=== PATIENT | female | born 1995 | race Two or more races ===

== ENCOUNTER 2017-12-13 11:21 | Inpatient (IN) | payer OTHER ==
[2017-12-13] MEDS ORDERED: LIDOCAINE 1% (MPF) 30 ML INJ INJ (12:00)
[2017-12-13] MEDS ORDERED: CARBOPROST 250 MCG INJ IM (12:00)
[2017-12-13] MEDS ORDERED: MISOPROSTOL 200 MCG TAB PR (12:00)
[2017-12-13] MEDS ORDERED: OXYTOCIN 30 UNITS/LR 500 ML IV (12:00)
[2017-12-13] MEDS ORDERED: METHYLERGONOVINE 0.2 MG INJ IM (12:00)
[2017-12-13] MEDS: LACTATED RINGER'S 1,000 ML IV ×2 (12:45→17:30)
[2017-12-13 12:59] LABS: ADD MAN DIFF? NO
[2017-12-13 13:05] LABS: BASOPHILS % 0.5 % (0.0-2.0); EOSINOPHILS # 0.1 10^3/ul (0.0-0.5); EOSINOPHILS % 1.4 % (0.0-7.0); HEMATOCRIT 33.6 % (37.0-47.0); LYMPHOCYTES # 1.8 10^3/ul (0.8-2.9); LYMPHOCYTES % 23.5 % (15.0-51.0); MEAN CORPUSCULAR HEMOGLOBIN 29.2 pg (29.0-33.0); MEAN CORPUSCULAR HGB CONC 35.7 g/dl (32.0-37.0); MEAN CORPUSCULAR VOLUME 81.8 fl (82.0-101.0); MEAN PLATELET VOLUME 10.8 fl (7.4-10.4); MONOCYTE # 0.5 10^3/ul (0.3-0.9); MONOCYTES % 5.9 % (0.0-11.0); NEUTROPHIL # 5.3 10^3/ul (1.6-7.5); NEUTROPHILS % 68.1 % (39.0-77.0); PLATELET COUNT 236 10^3/UL (140-415); RED BLOOD COUNT 4.11 10^6/ul (4.20-5.40); RED CELL DISTRIBUTION WIDTH 13.7 % (11.5-14.5)
[2017-12-13 13:05] LABS: WHITE BLOOD COUNT 7.8 10^3/ul (4.8-10.8)
[2017-12-13 13:19] LABS: ALANINE AMINOTRANSFERASE 19 IU/L (13-69); ALBUMIN 3.5 g/dl (3.3-4.9); ALBUMIN/GLOBULIN RATIO 0.92; ALKALINE PHOSPHATASE 154 IU/L (42-121); ANION GAP 16 (8-16); ASPARTATE AMINO TRANSFERASE 17 IU/L (15-46); BILIRUBIN,INDIRECT 0.3 mg/dl (0-1.1); BILIRUBIN,TOTAL 0.3 mg/dl (0.2-1.3); BLOOD UREA NITROGEN 11 mg/dl (7-20); CARBON DIOXIDE 18 mmol/L (21-31); CHLORIDE 113 mmol/L (97-110); CREATININE 0.65 mg/dl (0.44-1.00); GLUCOSE 83 mg/dl (70-220); POTASSIUM 3.9 mmol/L (3.5-5.1); SODIUM 143 mmol/L (135-144); TOTAL PROTEIN 7.3 g/dl (6.1-8.1)
[2017-12-13 13:25] LABS: INR 0.89; PROTIME 12.1 Sec (11.9-14.9); PT RATIO 0.9
[2017-12-13 13:28] LABS: PARTIAL THROMBOPLASTIN TIME 26.4 Sec (25.0-35.0)
[2017-12-13 13:52] LABS: ADD UMIC YES; UR ASCORBIC ACID NEGATIVE (NEGATIVE); UR BACTERIA FEW /HPF (NONE SEEN); UR BILIRUBIN (Dip) NEGATIVE (NEGATIVE); UR BLOOD (Dip) 1+ mg/dL (NEGATIVE); UR CLARITY SLIGHTLY CLOUDY (CLEAR); UR COLOR YELLOW (YELLOW); UR GLUCOSE (Dip) NEGATIVE (NEGATIVE); UR KETONES (Dip) NEGATIVE (NEGATIVE); UR LEUKOCYTE ESTERASE (Dip) 1+ Leu/ul (NEGATIVE); UR NITRITE (Dip) NEGATIVE (NEGATIVE); UR RBC 34 /HPF (0-5); UR SPECIFIC GRAVITY (Dip) 1.019 (1.003-1.030); UR SQUAMOUS EPITHELIAL CELL FEW /HPF (FEW); UR TOTAL PROTEIN (Dip) NEGATIVE (NEGATIVE); UR UROBILINOGEN (Dip) 1+ mg/dL (NEGATIVE); UR WBC 9 /HPF (0-5)
[2017-12-13] MEDS: DINOPROSTONE 10 MG VAG SUPP VAG (13:53)
[2017-12-13 14:07] LABS: AMPHETAMINE/METHAMPHETAMINE Negative (NEGATIVE); BARBITURATES Negative (NEGATIVE); BENZODIAZEPINES Negative (NEGATIVE); CANNABINOIDS Negative (NEGATIVE); COCAINE Negative (NEGATIVE); OPIATES Negative (NEGATIVE)
[2017-12-13 18:12] LABS: URIC ACID 5.9 mg/dl (3.1-7.9)
[2017-12-13 22:24] LABS: RAPID PLASMA REAGIN NONREACTIVE (NR)
[2017-12-14] MEDS: LACTATED RINGER'S 1,000 ML IV ×3 (01:36→18:36)
[2017-12-14] MEDS: DINOPROSTONE 10 MG VAG SUPP VAG ×2 (06:46→21:44)
[2017-12-14 13:49] LABS: COLLECTION PERIOD 24 hrs
[2017-12-14 14:30] LABS: COLLECTION PERIOD 24 hrs; CREATININE CLEARANCE 122.7 mls/min (84.0-162.0); CREATININE,URINE RANDOM 44.61 mg/dl (20-320); SCRET 0.65 mg/dl (0.44-1.00); VOLUME 2575 ml/24hrs; VOLUME 2575 mls
[2017-12-14 14:31] LABS: 24HR URINE TOTAL PROTEIN 334.8 mg/24hrs (42.0-225.0)
[2017-12-14] MEDS ORDERED: DINOPROSTONE 10 MG VAG SUPP VAG (19:00)
[2017-12-15] MEDS: LACTATED RINGER'S 1,000 ML IV ×3 (03:35→16:00)
[2017-12-15] MEDS ORDERED: OXYTOCIN 30 UNITS/LR 500 ML BAG IV (07:00)
[2017-12-15] MEDS: ACETAMINOPHEN 325 MG TAB PO (07:46)
[2017-12-15] MEDS: DINOPROSTONE 10 MG VAG SUPP VAG (09:53)
[2017-12-15] MEDS: ONDANSETRON 4 MG INJ IV (15:00)
[2017-12-15] MEDS: FAMOTIDINE 20 MG INJ IV (15:00)
[2017-12-15] MEDS: METOCLOPRAMIDE 10 MG INJ IV (15:00)
[2017-12-15] MEDS ORDERED: morphine SULFATE/PF (10 MG/10 ML) INJ (16:27)
[2017-12-15] MEDS ORDERED: BUPIVACAINE 0.75%/DEXT (SPINAL) 2 ML INJ (16:28)
[2017-12-15] MEDS ORDERED: LIDOCAINE 1.5%/EPI MPF (SDV) 30 ML VIAL (16:58)
[2017-12-15] MEDS ORDERED: OXYTOCIN 10 UNIT INJ (17:23)
[2017-12-15] MEDS ORDERED: HYDROmorphONE 0.5 MG/0.5 ML SYG IV ×2 (18:30)
[2017-12-15] MEDS ORDERED: ONDANSETRON 4 MG INJ IV (18:30)
[2017-12-15] MEDS ORDERED: hydrALAzine 20 MG INJ IV (18:30)
[2017-12-15] MEDS ORDERED: LABETALOL HCL 20MG INJ IV (18:30)
[2017-12-15] MEDS ORDERED: HYDROmorphONE (0.2 MG/ML) 10ML SYG IV ×3 (18:30)
[2017-12-15] MEDS ORDERED: DIPHENHYDRAMINE 50 MG INJ IV (18:30)
[2017-12-15] MEDS ORDERED: NALOXONE (0.4 MG/ML) INJ IV (18:30)
[2017-12-15] MEDS: OXYTOCIN 30 UNITS/LR 500 ML IV ×2 (19:45→23:35)
[2017-12-15] MEDS: CEFAZOLIN 2 GM/50 ML (PMX) 50 ML IV (19:50)
[2017-12-15 20:19] LABS: ADD MAN DIFF? NO
[2017-12-15 20:21] LABS: WHITE BLOOD COUNT 15.4 10^3/ul (4.8-10.8)
[2017-12-15 20:21] LABS: BASOPHILS % 0.3 % (0.0-2.0); EOSINOPHILS % 0.1 % (0.0-7.0); HEMATOCRIT 34.1 % (37.0-47.0); HEMOGLOBIN 12.2 g/dl (12.0-16.0); LYMPHOCYTES # 1.5 10^3/ul (0.8-2.9); LYMPHOCYTES % 9.6 % (15.0-51.0); MEAN CORPUSCULAR HEMOGLOBIN 29.7 pg (29.0-33.0); MEAN CORPUSCULAR HGB CONC 35.8 g/dl (32.0-37.0); MEAN PLATELET VOLUME 10.8 fl (7.4-10.4); MONOCYTE # 0.6 10^3/ul (0.3-0.9); MONOCYTES % 3.6 % (0.0-11.0); NEUTROPHIL # 13.2 10^3/ul (1.6-7.5); NEUTROPHILS % 85.6 % (39.0-77.0); PLATELET COUNT 220 10^3/UL (140-415); RED BLOOD COUNT 4.11 10^6/ul (4.20-5.40); RED CELL DISTRIBUTION WIDTH 13.5 % (11.5-14.5)
[2017-12-15] MEDS: KETOROLAC 30 MG INJ IV (20:25)
[2017-12-15 20:37] LABS: ADD UMIC NO; UR ASCORBIC ACID NEGATIVE (NEGATIVE); UR BILIRUBIN (Dip) NEGATIVE (NEGATIVE); UR BLOOD (Dip) NEGATIVE (NEGATIVE); UR CLARITY CLEAR (CLEAR); UR COLOR STRAW (YELLOW); UR GLUCOSE (Dip) NEGATIVE (NEGATIVE); UR KETONES (Dip) 1+ mg/dL (NEGATIVE); UR LEUKOCYTE ESTERASE (Dip) NEGATIVE Leu/ul (NEGATIVE); UR NITRITE (Dip) NEGATIVE (NEGATIVE); UR SPECIFIC GRAVITY (Dip) 1.004 (1.003-1.030); UR TOTAL PROTEIN (Dip) NEGATIVE (NEGATIVE); UR UROBILINOGEN (Dip) NEGATIVE (NEGATIVE)
[2017-12-15 20:40] LABS: INR 0.95; PROTIME 12.8 Sec (11.9-14.9)
[2017-12-15 20:41] LABS: PARTIAL THROMBOPLASTIN TIME 25.7 Sec (25.0-35.0)
[2017-12-15 20:48] LABS: ALANINE AMINOTRANSFERASE 14 IU/L (13-69); ALBUMIN 3.3 g/dl (3.3-4.9); ALBUMIN/GLOBULIN RATIO 0.94; ALKALINE PHOSPHATASE 142 IU/L (42-121); ANION GAP 16 (8-16); ASPARTATE AMINO TRANSFERASE 21 IU/L (15-46); BILIRUBIN,INDIRECT 0.3 mg/dl (0-1.1); BILIRUBIN,TOTAL 0.3 mg/dl (0.2-1.3); BLOOD UREA NITROGEN 5 mg/dl (7-20); CALCIUM 9.8 mg/dl (8.4-10.2); CARBON DIOXIDE 22 mmol/L (21-31); CHLORIDE 110 mmol/L (97-110); CREATININE 0.64 mg/dl (0.44-1.00); GLUCOSE 97 mg/dl (70-220); POTASSIUM 4.1 mmol/L (3.5-5.1); SODIUM 144 mmol/L (135-144); TOTAL PROTEIN 6.8 g/dl (6.1-8.1); URIC ACID 5.4 mg/dl (3.1-7.9)
[2017-12-15] MEDS ORDERED: HYDROCODONE/APAP (5/325) TAB PO (22:00)
[2017-12-15] MEDS ORDERED: OXYTOCIN 30 UNITS/LR 500 ML IV (22:00)
[2017-12-15] MEDS ORDERED: METHYLERGONOVINE 0.2 MG INJ IM (22:00)
[2017-12-15] MEDS ORDERED: CARBOPROST 250 MCG INJ IM (22:00)
[2017-12-15] MEDS ORDERED: MISOPROSTOL 200 MCG TAB PR (22:00)
[2017-12-15] MEDS ORDERED: LANOLIN 7 GM TUBE TOP (22:00)
[2017-12-15] MEDS ORDERED: OXYCODONE/ACETAMINOPHEN (5/325) TAB PO ×2 (22:00)
[2017-12-16] MEDS: CEFAZOLIN 1 GM/50 ML (PMX) 50 ML IVPB (01:17)
[2017-12-16] MEDS: OXYTOCIN 30 UNITS/LR 500 ML IV ×5 (05:15→17:46)
[2017-12-16] MEDS: SENNA/DOCUSATE NA (8.6MG/50MG) TAB PO ×2 (09:41→21:17)
[2017-12-16 11:25] LABS: ADD MAN DIFF? NO
[2017-12-16 11:30] LABS: BASOPHILS % 0.3 % (0.0-2.0); EOSINOPHILS # 0.1 10^3/ul (0.0-0.5); EOSINOPHILS % 0.6 % (0.0-7.0); HEMATOCRIT 26.5 % (37.0-47.0); HEMOGLOBIN 9.3 g/dl (12.0-16.0); LYMPHOCYTES # 1.7 10^3/ul (0.8-2.9); LYMPHOCYTES % 18.1 % (15.0-51.0); MEAN CORPUSCULAR HEMOGLOBIN 29.4 pg (29.0-33.0); MEAN CORPUSCULAR HGB CONC 35.1 g/dl (32.0-37.0); MEAN CORPUSCULAR VOLUME 83.9 fl (82.0-101.0); MEAN PLATELET VOLUME 10.6 fl (7.4-10.4); MONOCYTE # 0.6 10^3/ul (0.3-0.9); MONOCYTES % 5.9 % (0.0-11.0); NEUTROPHIL # 6.9 10^3/ul (1.6-7.5); NEUTROPHILS % 74.7 % (39.0-77.0); PLATELET COUNT 178 10^3/UL (140-415); RED BLOOD COUNT 3.16 10^6/ul (4.20-5.40); RED CELL DISTRIBUTION WIDTH 13.9 % (11.5-14.5)
[2017-12-16 11:30] LABS: WHITE BLOOD COUNT 9.3 10^3/ul (4.8-10.8)
[2017-12-16] MEDS: KETOROLAC 30 MG INJ IV ×2 (11:30→17:18)
[2017-12-16 12:28] LABS: HEPATITIS B SURFACE ANTIGEN NEGATIVE (NEGATIVE)
[2017-12-16] MEDS: IBUPROFEN 600 MG TAB PO ×2 (17:56→23:33)
[2017-12-16 20:43] LABS: COLLECTION PERIOD 24 hrs
[2017-12-16 20:59] LABS: COLLECTION PERIOD 24 hrs; CREATININE CLEARANCE 149.8 mls/min (84.0-162.0); CREATININE,URINE RANDOM 31.74 mg/dl (20-320); SCRET 0.64 mg/dl (0.44-1.00); VOLUME 4350 ml/24hrs; VOLUME 4350 mls
[2017-12-17] MEDS: HYDROCODONE/APAP (5/325) TAB PO (04:10)
[2017-12-17] MEDS: IBUPROFEN 600 MG TAB PO ×4 (05:34→23:47)
[2017-12-17] MEDS: NA PHOSPHATE/BIPHOS 133 ML ENEMA PR (09:30)
[2017-12-17] MEDS: SENNA/DOCUSATE NA (8.6MG/50MG) TAB PO ×2 (11:49→21:20)
[2017-12-18] MEDS: IBUPROFEN 600 MG TAB PO ×2 (05:32→12:30)
[2017-12-18] MEDS: SENNA/DOCUSATE NA (8.6MG/50MG) TAB PO (08:50)
[2017-12-18] MEDS: DIPHTH/TET/ACEL PERTUSS (ADULT) 0.5 ML VIAL IM* (10:00)
== END 2017-12-18 14:00 | disposition home or self-care (01) | DRG 766 ==
LOC: OBT 11:21 → L-D 12-15 05:01 → PP1 12-15 21:45 → OBT 12:13 → L-D 12:25
PROC: 10D00Z1 Extraction of Products of Conception, Low, Open Approach (ICD-10-PCS; principal; 2017-12-15)
PROC: 3E033VJ Introduction of Other Hormone into Peripheral Vein, Percutaneous Approach (ICD-10-PCS; 2017-12-15)
DX: O34.211 Maternal care for low transverse scar from previous cesarean delivery (principal); O62.0 Primary inadequate contractions; Z3A.39 39 weeks gestation of pregnancy; Z37.0 Single live birth
CPT/HCPCS: 76816; 76818; 80053; 80307; 81001; 81003; 82575; 84156; 84560; 85025; 85384; 85610; 85730; 86592; 86850; 86900; 86901; 87340; 94760; 99464